=== PATIENT | female | born 1955 | race Caucasian/White ===

== ENCOUNTER 2018-11-02 17:34 | Emergency (ER) | payer MEDICARE, MEDICAID ==
[~2018-11-02] VITALS: Ht 162.5 cm; Wt 77.1 kg
[2018-11-02] MEDS ORDERED: LIPITOR40 MG PO (18:07)
[2018-11-02] MEDS ORDERED: CYMBALTA60 MG PO (18:08)
[2018-11-02] MEDS ORDERED: BUPROPION HCL150 M2 PO (18:08)
[2018-11-02] MEDS ORDERED: PLAVIX75 M1 PO (18:08)
[2018-11-02] MEDS ORDERED: GOOD SENSE ACID20 MG PO (18:09)
[2018-11-02] MEDS ORDERED: INVOKANA100 M1 PO (18:09)
[2018-11-02] MEDS ORDERED: GRALISE300 M1 PO (18:09)
[2018-11-02] MEDS ORDERED: GLUMETZA500 MG PO (18:10)
[2018-11-02] MEDS ORDERED: LISINOPRIL5 MG PO (18:10)
[2018-11-02] MEDS ORDERED: SEROQUEL50 MG PO (18:11)
[2018-11-02] MEDS ORDERED: OMEPRAZOLE40 MG PO (18:11)
[2018-11-02] MEDS ORDERED: NOVOLOG FL100 UNIT/1 SQ (18:11)
[2018-11-02] MEDS ORDERED: TRESIBA FL200 UNIT/1 SQ (18:12)
[2018-11-02] MEDS ORDERED: NAPROSYN500 MG PO (18:38)
[2018-11-02] MEDS ORDERED: NORCO 5-325 TA1 EACH PO (18:42)
== END 2018-11-02 18:38 | disposition home or self-care (01) ==
LOC: ED 17:34
DX: S62.347A Nondisplaced fracture of base of fifth metacarpal bone, left hand, initial encounter for closed fracture (principal); R03.0 Elevated blood-pressure reading, without diagnosis of hypertension; Z91.041 Radiographic dye allergy status; Z88.2 Allergy status to sulfonamides; Z79.899 Other long term (current) drug therapy; Z79.84 Long term (current) use of oral hypoglycemic drugs; Z79.4 Long term (current) use of insulin; W18.39XA Other fall on same level, initial encounter; Y93.89 Activity, other specified; Y92.89 Other specified places as the place of occurrence of the external cause; Y99.8 Other external cause status

== ENCOUNTER 2022-07-05 01:07 | Inpatient (IN) | payer OTHER ==
[~2022-07-05] VITALS: Ht 162.5 cm; Wt 87.2 kg
[~2022-07-05 01:07] MED LIST: BUPROPION HCL150 M2 PO; CYMBALTA60 MG PO; GLUMETZA500 MG PO; GOOD SENSE ACID20 MG PO; GRALISE300 M1 PO; INVOKANA100 M1 PO; LIPITOR40 MG PO; LISINOPRIL5 MG PO; NAPROSYN500 MG PO; NORCO 5-325 TA1 EACH PO; NOVOLOG FL100 UNIT/1 SQ; OMEPRAZOLE40 MG PO; PLAVIX75 M1 PO; SEROQUEL50 MG PO; TRESIBA FL200 UNIT/1 SQ
[2022-07-05 01:10] VITALS: BP 139/63
[2022-07-05 01:40] LABS: BASO # 0.1 10*3/uL (0.0-0.1); BASO % 0.6 % (0.0-1.0); EOS # 0.2 10*3/uL (0.0-0.4); EOS % 1.7 % (1.0-4.0); HEMATOCRIT 32.8 % (37.0-47.0); LYMPH # 1.5 10*3/uL (1.3-4.4); LYMPH % 14.6 % (27.0-41.0); MEAN CELL VOLUME 86.8 fl (81.0-99.0); MEAN CORPUSCULAR HGB 26.5 pg (27.0-31.0); MEAN CORPUSCULAR HGB CONC 30.5 g/dl (33.0-37.0); MEAN PLATELET VOLUME 9.8 fl (9.6-12.3); MONO # 0.7 10*3/uL (0.1-1.0); NEUT # 7.8 10*3/uL (2.3-7.9); NEUT % 75.7 % (47.0-73.0); PLATELET COUNT AUTOMATED 291 10*3/uL (130-400); RED BLOOD COUNT 3.78 10*6/uL (4.10-5.10); WHITE BLOOD COUNT 10.3 10*3/uL (4.8-10.8)
[2022-07-05 01:41] LABS: VENOUS PH 7.326 (7.37-7.45)
[2022-07-05 01:55] LABS: ACT PARTIAL THROMBO TIME 27.4 SECONDS (20.0-32.1)
[2022-07-05 01:59] LABS: CREATININE 1.38 mg/dL (0.55-1.02); POTASSIUM 4.5 mmol/L (3.5-5.1); TOTAL PROTEIN 7.1 gm/dL (6.4-8.2)
[2022-07-05 07:36] LABS: ABG BASE EXCESS -5.5 mmol/L (-2.0-2.0); ARTERIAL BLOOD GAS PH 7.407 (7.35-7.45); ARTERIAL BLOOD GAS PO2 60.8 (80-90)
[2022-07-05 08:23] VITALS: BP 149/67
[2022-07-05 11:44] VITALS: BP 156/65
[2022-07-05 16:00] VITALS: BP 155/70
[2022-07-05 20:00] VITALS: BP 160/66
[2022-07-06] VITALS: BP 152/65
[2022-07-06 06:13] LABS: CREATININE 1.13 mg/dL (0.55-1.02); POTASSIUM 4.2 mmol/L (3.5-5.1); TOTAL PROTEIN 6.4 gm/dL (6.4-8.2)
[2022-07-06 06:23] LABS: BASO % 0.5 % (0.0-1.0); EOS # 0.2 10*3/uL (0.0-0.4); EOS % 2.9 % (1.0-4.0); HEMATOCRIT 30.4 % (37.0-47.0); LYMPH % 24.4 % (27.0-41.0); MEAN CELL VOLUME 84.4 fl (81.0-99.0); MEAN CORPUSCULAR HGB 25.8 pg (27.0-31.0); MEAN CORPUSCULAR HGB CONC 30.6 g/dl (33.0-37.0); MEAN PLATELET VOLUME 9.7 fl (9.6-12.3); MONO # 0.8 10*3/uL (0.1-1.0); MONO % 10.2 % (3.0-9.0); NEUT % 61.8 % (47.0-73.0); PLATELET COUNT AUTOMATED 298 10*3/uL (130-400); RED CELL DISTRI WIDTH 15.7 % (0-14.5)
[2022-07-06 08:00] VITALS: BP 175/69
[2022-07-06 12:00] VITALS: BP 145/70
[2022-07-06] MEDS ORDERED: NEURONTIN300 MG PO (13:43)
[2022-07-06 16:00] VITALS: BP 114/60
[2022-07-06 20:00] VITALS: BP 146/61
[2022-07-07] VITALS: BP 133/49
[2022-07-07 06:10] LABS: CREATININE 1.37 mg/dL (0.55-1.02); POTASSIUM 3.9 mmol/L (3.5-5.1)
[2022-07-07 06:24] LABS: BASO % 0.5 % (0.0-1.0); EOS # 0.3 10*3/uL (0.0-0.4); EOS % 3.9 % (1.0-4.0); HEMATOCRIT 31.4 % (37.0-47.0); LYMPH # 1.7 10*3/uL (1.3-4.4); LYMPH % 21.3 % (27.0-41.0); MEAN CELL VOLUME 84.4 fl (81.0-99.0); MEAN CORPUSCULAR HGB 25.3 pg (27.0-31.0); MEAN CORPUSCULAR HGB CONC 29.9 g/dl (33.0-37.0); MEAN PLATELET VOLUME 9.6 fl (9.6-12.3); MONO # 0.8 10*3/uL (0.1-1.0); MONO % 9.8 % (3.0-9.0); NEUT # 4.9 10*3/uL (2.3-7.9); NEUT % 63.3 % (47.0-73.0); PLATELET COUNT AUTOMATED 311 10*3/uL (130-400); RED BLOOD COUNT 3.72 10*6/uL (4.10-5.10); RED CELL DISTRI WIDTH 15.3 % (0-14.5); WHITE BLOOD COUNT 7.7 10*3/uL (4.8-10.8)
[2022-07-07 08:00] VITALS: BP 122/50
[2022-07-07 12:00] VITALS: BP 116/72
[2022-07-07 16:41] VITALS: BP 135/45
[2022-07-07 20:00] VITALS: BP 105/63; BP 147/87
[2022-07-08] VITALS: BP 154/72
[2022-07-08 06:23] LABS: BASO % 0.3 % (0.0-1.0); EOS # 0.4 10*3/uL (0.0-0.4); EOS % 4.5 % (1.0-4.0); HEMATOCRIT 27.5 % (37.0-47.0); LYMPH # 1.7 10*3/uL (1.3-4.4); LYMPH % 18.4 % (27.0-41.0); MEAN CELL VOLUME 84.4 fl (81.0-99.0); MEAN CORPUSCULAR HGB 25.8 pg (27.0-31.0); MEAN CORPUSCULAR HGB CONC 30.5 g/dl (33.0-37.0); MEAN PLATELET VOLUME 9.2 fl (9.6-12.3); MONO # 0.9 10*3/uL (0.1-1.0); MONO % 9.6 % (3.0-9.0); NEUT # 6.2 10*3/uL (2.3-7.9); NEUT % 66.8 % (47.0-73.0); PLATELET COUNT AUTOMATED 276 10*3/uL (130-400); RED BLOOD COUNT 3.26 10*6/uL (4.10-5.10); WHITE BLOOD COUNT 9.3 10*3/uL (4.8-10.8)
[2022-07-08 06:38] LABS: CREATININE 1.41 mg/dL (0.55-1.02); POTASSIUM 4.2 mmol/L (3.5-5.1)
[2022-07-08 08:00] VITALS: BP 137/59
[2022-07-08 12:00] VITALS: BP 136/50
[2022-07-08 16:00] VITALS: BP 90/52
[2022-07-08 20:00] VITALS: BP 141/55
[2022-07-09] VITALS: BP 119/41
[2022-07-09 05:54] LABS: CREATININE 1.25 mg/dL (0.55-1.02)
[2022-07-09 06:14] LABS: BASO % 0.5 % (0.0-1.0); EOS # 0.5 10*3/uL (0.0-0.4); EOS % 6.7 % (1.0-4.0); LYMPH # 2.1 10*3/uL (1.3-4.4); LYMPH % 25.8 % (27.0-41.0); MEAN CELL VOLUME 86.2 fl (81.0-99.0); MEAN CORPUSCULAR HGB 25.5 pg (27.0-31.0); MEAN CORPUSCULAR HGB CONC 29.6 g/dl (33.0-37.0); MEAN PLATELET VOLUME 9.6 fl (9.6-12.3); MONO # 0.7 10*3/uL (0.1-1.0); MONO % 8.9 % (3.0-9.0); NEUT # 4.6 10*3/uL (2.3-7.9); NEUT % 57.9 % (47.0-73.0); PLATELET COUNT AUTOMATED 306 10*3/uL (130-400); RED BLOOD COUNT 3.25 10*6/uL (4.10-5.10); RED CELL DISTRI WIDTH 14.9 % (0-14.5)
[2022-07-09 08:00] VITALS: BP 131/56
[2022-07-09 11:50] VITALS: BP 132/53
[2022-07-09 16:02] VITALS: BP 121/43
[2022-07-09 20:00] VITALS: BP 147/49
[2022-07-10] VITALS: BP 135/55
[2022-07-10 06:17] LABS: CREATININE 1.18 mg/dL (0.55-1.02); POTASSIUM 4.5 mmol/L (3.5-5.1)
[2022-07-10 06:25] LABS: BASO % 0.4 % (0.0-1.0); EOS # 0.5 10*3/uL (0.0-0.4); EOS % 5.9 % (1.0-4.0); HEMATOCRIT 28.6 % (37.0-47.0); LYMPH # 1.8 10*3/uL (1.3-4.4); LYMPH % 21.7 % (27.0-41.0); MEAN CELL VOLUME 85.6 fl (81.0-99.0); MEAN CORPUSCULAR HGB 25.7 pg (27.0-31.0); MEAN CORPUSCULAR HGB CONC 30.1 g/dl (33.0-37.0); MEAN PLATELET VOLUME 9.8 fl (9.6-12.3); MONO # 0.8 10*3/uL (0.1-1.0); MONO % 9.9 % (3.0-9.0); NEUT # 5.1 10*3/uL (2.3-7.9); NEUT % 61.6 % (47.0-73.0); PLATELET COUNT AUTOMATED 315 10*3/uL (130-400); RED BLOOD COUNT 3.34 10*6/uL (4.10-5.10); RED CELL DISTRI WIDTH 14.9 % (0-14.5); WHITE BLOOD COUNT 8.3 10*3/uL (4.8-10.8)
[2022-07-10 08:00] VITALS: BP 120/47
[2022-07-10 12:00] VITALS: BP 143/51
[2022-07-10 16:00] VITALS: BP 151/52
[2022-07-10 20:00] VITALS: BP 154/52
[2022-07-11] VITALS: BP 124/46
[2022-07-11 06:09] LABS: CREATININE 1.32 mg/dL (0.55-1.02)
[2022-07-11 06:10] LABS: BASO % 0.5 % (0.0-1.0); EOS % 0.2 % (1.0-4.0); HEMATOCRIT 31.8 % (37.0-47.0); LYMPH # 0.6 10*3/uL (1.3-4.4); LYMPH % 10.3 % (27.0-41.0); MEAN CELL VOLUME 85.7 fl (81.0-99.0); MEAN CORPUSCULAR HGB 25.6 pg (27.0-31.0); MEAN CORPUSCULAR HGB CONC 29.9 g/dl (33.0-37.0); MONO # 0.1 10*3/uL (0.1-1.0); MONO % 1.3 % (3.0-9.0); NEUT # 5.4 10*3/uL (2.3-7.9); NEUT % 87.1 % (47.0-73.0); PLATELET COUNT AUTOMATED 321 10*3/uL (130-400); RED BLOOD COUNT 3.71 10*6/uL (4.10-5.10); RED CELL DISTRI WIDTH 14.6 % (0-14.5); WHITE BLOOD COUNT 6.2 10*3/uL (4.8-10.8)
[2022-07-11 06:14] LABS: POTASSIUM 5.9 mmol/L (3.5-5.1)
[2022-07-11 08:00] VITALS: BP 131/64
[2022-07-11] MEDS ORDERED: ASPIRIN ADULT L81 M2 PO (08:30)
[2022-07-11] MEDS ORDERED: ALDACTONE25 MG PO (08:30)
[2022-07-11] MEDS ORDERED: METOPROLOL SUCC25 M2 PO (08:30)
[2022-07-11] MEDS ORDERED: LISINOPRIL10 M1 PO (08:30)
[2022-07-11] MEDS ORDERED: GLUMETZA500 MG PO (08:30)
[2022-07-11 11:11] LABS: CREATININE 1.26 mg/dL (0.55-1.02); POTASSIUM 5.4 mmol/L (3.5-5.1)
[2022-07-11 12:00] VITALS: BP 145/52
== END 2022-07-11 13:54 | disposition short-term general hospital (02) | DRG 280 ==
LOC: ED 01:07 → 5E 04:31 → EDHOLD 04:31 → 5E 13:27
PROVIDERS: Emergency Medicine; Internal Medicine; Registered Nurse; Student in an Organized Health Care Education/Training Program; ADMIT Internal Medicine; ATTEND Internal Medicine
PROC: 5A09357 Assistance with Respiratory Ventilation, Less than 24 Consecutive Hours, Continuous Positive Airway Pressure (ICD-10-PCS; principal; 2022-07-05)
PROC: 5A0935A Assistance with Respiratory Ventilation, Less than 24 Consecutive Hours, High Flow/Velocity Cannula (ICD-10-PCS; 2022-07-05)
PROC: 5A09357 Assistance with Respiratory Ventilation, Less than 24 Consecutive Hours, Continuous Positive Airway Pressure (ICD-10-PCS; 2022-07-06)
PROC: 5A0935A Assistance with Respiratory Ventilation, Less than 24 Consecutive Hours, High Flow/Velocity Cannula (ICD-10-PCS; 2022-07-06)
PROC: 5A09357 Assistance with Respiratory Ventilation, Less than 24 Consecutive Hours, Continuous Positive Airway Pressure (ICD-10-PCS; 2022-07-07)
PROC: 5A0935A Assistance with Respiratory Ventilation, Less than 24 Consecutive Hours, High Flow/Velocity Cannula (ICD-10-PCS; 2022-07-07)
PROC: 5A09357 Assistance with Respiratory Ventilation, Less than 24 Consecutive Hours, Continuous Positive Airway Pressure (ICD-10-PCS; 2022-07-08)
PROC: 5A0935A Assistance with Respiratory Ventilation, Less than 24 Consecutive Hours, High Flow/Velocity Cannula (ICD-10-PCS; 2022-07-08)
PROC: 5A09357 Assistance with Respiratory Ventilation, Less than 24 Consecutive Hours, Continuous Positive Airway Pressure (ICD-10-PCS; 2022-07-09)
PROC: 5A0935A Assistance with Respiratory Ventilation, Less than 24 Consecutive Hours, High Flow/Velocity Cannula (ICD-10-PCS; 2022-07-09)
PROC: 5A09357 Assistance with Respiratory Ventilation, Less than 24 Consecutive Hours, Continuous Positive Airway Pressure (ICD-10-PCS; 2022-07-10)
PROC: 5A0935A Assistance with Respiratory Ventilation, Less than 24 Consecutive Hours, High Flow/Velocity Cannula (ICD-10-PCS; 2022-07-10)
PROC: 5A09357 Assistance with Respiratory Ventilation, Less than 24 Consecutive Hours, Continuous Positive Airway Pressure (ICD-10-PCS; 2022-07-11)
DX: I21.4 Non-ST elevation (NSTEMI) myocardial infarction (principal); E43 Unspecified severe protein-calorie malnutrition; N17.0 Acute kidney failure with tubular necrosis; I50.33 Acute on chronic diastolic (congestive) heart failure; J96.01 Acute respiratory failure with hypoxia; I11.0 Hypertensive heart disease with heart failure; Z66 Do not resuscitate; Z51.5 Encounter for palliative care; I25.10 Atherosclerotic heart disease of native coronary artery without angina pectoris; Z20.822 Contact with and (suspected) exposure to COVID-19; E78.5 Hyperlipidemia, unspecified; E11.65 Type 2 diabetes mellitus with hyperglycemia; E66.09 Other obesity due to excess calories; E83.42 Hypomagnesemia; D64.9 Anemia, unspecified; J41.0 Simple chronic bronchitis; Z95.1 Presence of aortocoronary bypass graft; Z68.30 Body mass index [BMI] 30.0-30.9, adult; Z79.899 Other long term (current) drug therapy; Z88.2 Allergy status to sulfonamides; Z87.891 Personal history of nicotine dependence